=== PATIENT | male | born 1995 | race Caucasian/White ===

== ENCOUNTER 2018-09-17 12:34 | Emergency (ER) | payer MEDICAID ==
[2018-09-17] MEDS ORDERED: Diphtheria,Pertussis(Acell),Tetanus Vaccine 0.5 ML SDV IM ONE (12:47)
[2018-09-17] MEDS ORDERED: Lidocaine 2% Jelly 10 ML Urojet MUCMEM ONE (13:25)
--- NOTE | 2018-09-17 13:35 | CRLCR ---
INDICATION: Trauma. FINDINGS: Three views of the left hand were obtained. There is no acute fracture seen or dislocation. IMPRESSION: No acute bone abnormality. Dictated by Melvin Bailey MD @ Sep 17 2018 1:32PM Signed by Dr. Melvin Bailey @ Sep 17 2018 1:33PM
[2018-09-17] MEDS ORDERED: Bacitracin Oint 1 GM U/D Packet TOP ONE (13:58)
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
== END 2018-09-17 14:22 | disposition home or self-care (01) ==
LOC: JP.ED 12:34
DX: S61.412A Laceration without foreign body of left hand, initial encounter (principal); V89.2XXA Person injured in unspecified motor-vehicle accident, traffic, initial encounter; Z23 Encounter for immunization
CPT/HCPCS: 73130-LT; 90471; 90715; 99282